=== PATIENT | male | born 1990 | race Caucasian/White ===

== ENCOUNTER 2024-11-08 05:51 | Emergency (ER) | payer SELFPAY ==
--- NOTE | ~2024-11-08 | XR_ITS ---
X-rays right ankle Indication: Pain, fall Comparison: None Technique: 4 views right ankle Findings/Impression: 1. No fracture or dislocation right ankle. 2. Severe soft tissue swelling lateral malleolus. Reviewed, dictated and finalized at location R.
[2024-11-08 05:56] VITALS: BP 125/83; PULSE 80; RESP 18; TEMP 35.8; O2SAT 97
--- NOTE | 2024-11-08 06:19 | ED_ITS ---
HPI - Extremity Injury (Lower) General Chief Complaint: Extremity Injury, Lower Stated Complaint: Lower Extremity Problem Time Seen by Provider: 11/08/24 06:16 Source: patient Mode of arrival: ambulatory Limitations: no limitations History of Present Illness HPI Narrative: Patient is a 34-year-old male who was walking his dog in to the twist to his right ankle. He has swelling of the right lateral ankle. Pain of the same area. MD complaint: ankle injury (Right ankle lateral) Onset (ago): hour(s) (2) Type of Injury: inversion Place: home and street/outdoors Severity: moderate Severity scale (1-10): 5 Relieving factors: immobilization and rest Exacerbating factors: weight bearing, movement and palpation Context: walking (With his dog this morning) Associated symptoms: swelling, tingling and able to partially bear weight Other symptoms: none Treatments prior to arrival: cold therapy Related Data Home Medications ?Medication ?Instructions ?Recorded ?Confirmed ?Last Taken ?Type No Home Medications 11/08/24 11/08/24 U nknown History Allergies Allergy/AdvReac Type Severity Reaction Status Date / Time No Known Allergies Allergy Verified 11/08/24 05:54 Review of Systems Review of Systems: All systems reviewed & are unremarkable except as noted in HPI and below Constitutional: Constitutional: Reports no additional constitutional complaints Eyes: Eyes: Reports no additional eye complaints ENT: Reports system reviewed and no additional complaints, except as documented Cardiovascular: Cardiovascular: Reports no additional cardiovascular complain ts Respiratory: Respiratory: Reports no additional respiratory complaints Gastrointestinal: Gastrointestinal: Reports no additional gastrointestinal complaints Genitourinary: Genitourinary: Reports no additional male genitourinary complai nts Musculoskeletal: Musculoskeletal: Reports no additional musculoskeletal complaints Integumentary/Breasts: Skin/Breast: Reports system reviewed and no additional complaints, except as docu Neurologic: Reports system reviewed and no additional complaints, except as documented Psychiatric: Psychiatric: Reports no additional psychiatric complaints Endocrine: Endocrine: Reports no additional endocrine complaints Hematologic/Lymphatic: Hematologic/Lymphatic: Reports no additional hematologic/lymphatic complaints Allergic/Immunologic: Allergic/Immunologic: Reports no additional allergic/immunologic complaints Exam Const: General: healthy appearing Nutritional Appearance: well nourished Orientation/consciousness: patient oriented x3 HENMT: Head: normal to inspection Ears: external ears normal F gaudencio/Nose/Sinus: Normal external nose present Eyes: Conjunctivae: conjunctivae normal Pupils: Equal, round and reactive pupils present EOM: EOMs intact bilaterally Neck: Neck: normal visual inspection Chest: Chest palpation & inspection: normal inspection of the chest Resp: Effort & Inspection: normal respiratory effort and not labored Auscultation: clear to auscultation bilaterally and no crackles Cardio: Rate: regular rate Rhythm: regular rhythm Heart sounds: no murmurs GI: Inspection: non-distended GI Palp: Yes Soft to palpation and No Tenderness to palpation present (GI) Auscultation: normal bowel sounds : General: Yes bladder normal to palpation Back/Spine/Pelvis: Back: no CVA tenderness Skin: General skin exam: normal color Rashes: no rashes Wounds: no wounds Neuro: General: patient oriented x3, moves all extremities and no meningeal signs Extrem: General: abnormal to inspection, no clubbing, cyanosis or edema and no pedal edema Other: Right ankle lateral aspect is swollen significantly in a ball shaped hematoma with tenderness to palpation Psych: Mental Status: mental status grossly normal Affect: normal affect Attitude: cooperative Course Vital Signs Vital signs: Vital Signs Temperature 35.8 C L 11/08/24 05:56 Pulse Rate 80 11/08/24 05:56 Respiratory Rate 18 11/08/24 05:56 Blood Pressure 125/83 11/08/24 05:56 Pulse Oximetry 97 11/08/24 05:56 Oxygen Delivery Room Air 11/08/24 05:56 Temperature 35.8 C L 11/08/24 05:56 Pulse Rate 80 11/08/24 05:56 Respiratory Rate 18 11/08/24 05:56 Blood Pressure 125/83 11/08/24 05:56 Pulse Oximetry 97 11/08/24 05:56 Oxygen Delivery Room Air 11/08/24 05:56 MDM - Extremity Injury (Lower) MDM Narrative Medical decision making narrative: Patient is a 34-year-old male with a right ankle injury by inversion when he was walking his dog this morning. X-ray. Pain management. Splint. Imaging Data Attestation: I personally reviewed and interpreted this imaging study as follows: My impression: X-ray right ankle is negative for acute process pending final reading Discharge Plan Discharge Clinical Impression: Right ankle sprain Qualifiers: Encounter type: initial encounter Involved ligament of ankle: other ligament Qualified Code(s): S93.491A - Sprain of other ligament of right ankle, initial encounter Patient Disposition: Home Condition: Stable Instructions: Ankle Sprain (ED) Additional Instructions: Rest, ice, elevation and compression for 2 weeks. Ibuprofen and Tylenol as needed. Patient Language: Irish Prescriptions: No Action No Home Medications Follow-up/Referrals: UNKNOWN,DOCTOR [Primary Care Provider] Stand Alone Forms: Work/School Release IP Time of Disposition: 06:25
[2024-11-08 06:36] VITALS: BP 126/82; PULSE 81; RESP 18; TEMP 36.6; O2SAT 98
== END 2024-11-08 06:36 | disposition home or self-care (01) ==
PROVIDERS: Emergency Provider Emergency Medicine
DX: S93.491A Sprain of other ligament of right ankle, initial encounter (principal); X50.0XXA Overexertion from strenuous movement or load, initial encounter
CPT/HCPCS: 29515; 73610; 99283; L4350